=== PATIENT | female | born 1945 | race Caucasian/White ===

== ENCOUNTER → 2020-12-14 13:47 | Outpatient (CLI) | payer MEDICARE ==
[2020-12-14 13:56] LABS: BASOPHILS 0.3 % (0-2); HEMATOCRIT 41.8 % (36.0-48.0); HEMOGLOBIN 13.8 g/dL (12-16); IMMATURE GRANULOCYTES 0.2 % (0-5); LYMPHOCYTES 32.6 % (15-50); MCH 29.2 pg (26.0-34.0); MCV 88.6 fL (80.0-100.0); MEAN PLATELET VOLUME 11.2 fL (7.4-10.4); MONOCYTES 7.4 % (2-11); NEUTROPHIL ABS# 4.39 10x3/uL (1.56-6.13); NEUTROPHILS 49.5 % (40-80); PLATELET COUNT 309 10x3/uL (130-400); RBC 4.72 10x6/uL (4.00-5.40); WBC 8.9 10x3/uL (4.8-10.8)
[2020-12-14 14:04] LABS: ANION GAP 15.4 mmol/L (8-16); CALCIUM 8.8 mg/dL (8.5-10.1); CARBON DIOXIDE 24.7 mmol/L (21.0-32.0); CREATININE - SERUM 0.9 mg/dL (0.6-1.3); POTASSIUM - SERUM 4.1 mmol/L (3.5-5.1)
== END | disposition home or self-care (01) ==
LOC: D.LAB 13:47
PROVIDERS: ATTEND Internal Medicine Gastroenterology
DX: Z86.010 Personal history of colon polyps (principal); Z80.0 Family history of malignant neoplasm of digestive organs; K57.30 Diverticulosis of large intestine without perforation or abscess without bleeding; K63.5 Polyp of colon; K64.2 Third degree hemorrhoids; K62.1 Rectal polyp; Z12.11 Encounter for screening for malignant neoplasm of colon